=== PATIENT | male | born 1945 | race Caucasian/White ===

== ENCOUNTER 2019-12-15 07:44 | Emergency (ER) | payer MEDICARE, OTHER ==
[~2019-12-15] VITALS: Ht 175.3 cm; Wt 86.2 kg
[~2019-12-15 07:44] MED LIST: HYDR-4100 PO; SIMV20TA2 PO; TAMS-11 PO; VALS320T2 PO; VERA240C2 PO
[2019-12-15 07:54] VITALS: BP_SYST 158
--- NOTE | 2019-12-15 07:59 | NUR ---
Patient to ER bed 1 to gown for evaluation. Side rails up. Mariluz
--- NOTE | 2019-12-15 08:00 | NUR ---
Patient presented to ER with right hip pain. Patient A&Ox4, pain 09/01. denies N/V/D, skin pink and warm, cap refill <3, pedal pulses present. Patient states pain started yesterday approx. 1600 after carring heavy items up stairs. 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
--- NOTE | 2019-12-15 08:28 | NUR ---
ER Dr. Leon at bedside examining patient.
--- NOTE | 2019-12-15 08:38 | NUR ---
Patient to ER bed 1 from Radiology.
[2019-12-15 09:59] LABS: BASOPHILS % (AUTO) 0.2 % (0.0-2.0); EOSINOPHILS # (AUTO) 0.4 K/uL (0.0-0.4); EOSINOPHILS % (AUTO) 3.3 % (0.0-4.0); HEMATOCRIT 39.6 % (36-54); LYMPHOCYTES # (AUTO) 1.2 K/uL (1.0-5.5); LYMPHOCYTES % (AUTO) 10.9 % (20.5-51.5); MEAN CORPUSCULAR HEMOGLOBIN 32 pg (27-31); MEAN CORPUSCULAR HGB CONC 33 % (32-36); MEAN CORPUSCULAR VOLUME 96 fL (79.0-98.0); MONOCYTES # (AUTO) 0.8 K/uL (0.0-1.0); MONOCYTES % (AUTO) 7.7 % (1.7-9.3); NEUTROPHILS # (AUTO) 8.3 K/uL (1.8-7.7); NEUTROPHILS % (AUTO) 77.9 % (40.0-70.0); PLATELET COUNT (AUTO) 296 K/uL (130-430); RED BLOOD CELL COUNT(AUTO) 4.11 MIL/uL (4.2-6.2); RED CELL DISTRIBUTION WIDTH 14.8 % (9.0-15.0); WHITE BLOOD COUNT (AUTO) 10.7 K/uL (4.8-10.8)
[2019-12-15 10:07] LABS: ALANINE AMINOTRANSFERASE 35 U/L (12-78); ALBUMIN 4.3 g/dL (3.4-4.8); ANION GAP 10 (5-15); ASPARTATE AMINOTRANSFERASE 22 U/L (10-37); CALCIUM 8.8 mg/dL (8.4-11.0); CHLORIDE 100 mmol/L (98-107); GLUCOSE 130 mg/dL (70-99); POTASSIUM 3.9 mmol/L (3.5-5.1); SODIUM SERUM 135 mmol/L (136-145); TOTAL BILIRUBIN 0.6 mg/dL (0.0-1.0); UREA NITROGEN, BLOOD 17 mg/dL (8-21)
[2019-12-15] MEDS ORDERED: GLU500 PO (10:11)
[2019-12-15] MEDS ORDERED: VALS1TAB80 PO (10:11)
[2019-12-15] MEDS ORDERED: VALA500T PO (10:11)
--- NOTE | 2019-12-15 10:12 | NUR ---
Medication reconciliation completed with information provided by the pt. Any prior medication reconciliation on file was reviewed and corrected.
[2019-12-15 10:14] LABS: CREATININE 0.63 mg/dL (0.55-1.30)
[2019-12-15] MEDS ORDERED: fentaNYL CITRATE/PF 100 MCG/2 ML AMP IVP ONE (11:45)
--- NOTE | 2019-12-15 12:40 | NUR ---
called [facility]
--- NOTE | 2019-12-15 13:00 | NUR ---
Patient sitting up in gurney, awake and alertx4
--- NOTE | 2019-12-15 14:30 | NUR ---
Patient given lunch tray
[2019-12-15] MEDS ORDERED: ACETAMINOPHEN 500 MG TABLET PO ONE (17:15)
--- NOTE | 2019-12-15 17:30 | NUR ---
Patient moved to ER room 6
--- NOTE | 2019-12-15 18:35 | NUR ---
Patient to be transferred to [facility] . Is being transferred due to higher level of care. Receiving facility has accepting physician and available space. ER physician has signed transfer form. Patient or responsible constitution party has agreed to transfer and signed form. Patient belongings inventoried and will be sent with patient. Copy of nursing notes, lab reports, EKG, Physicians Orders and X-rays to be sent with patient. Report called to Talon WESLEY at receiving facility. Receiving physician is Dr. Keith Azevedo. [facility] ambulance service has been called for transfer. ETA is 1900.
[2019-12-15 18:50] VITALS: BP_SYST 153
== END 2019-12-15 18:35 | disposition short-term general hospital (02) ==
LOC: SED 07:44
DX: M25.551 Pain in right hip (principal); E11.9 Type 2 diabetes mellitus without complications; I10 Essential (primary) hypertension; E78.00 Pure hypercholesterolemia, unspecified; Z79.899 Other long term (current) drug therapy; Z88.2 Allergy status to sulfonamides; Z96.641 Presence of right artificial hip joint
CPT/HCPCS: 36415; 72170; 72192; 73502; 80053; 85025; 96374; 99285; J3010

== ENCOUNTER 2022-11-17 06:07 | Emergency (ER) | payer OTHER ==
[~2022-11-17] VITALS: Ht 175.3 cm; Wt 86.6 kg
[~2022-11-17 06:07] MED LIST changes: +GLU500 PO; +HYDR-3927 PO; -HYDR-4100 PO; +SIMV-343 PO; -SIMV20TA2 PO; +VALA500T PO; +VALS1TAB80 PO; -VALS320T2 PO
[2022-11-17 06:20] VITALS: BP_SYST 123
--- NOTE | 2022-11-17 06:30 | NUR ---
Patient triaged and placed in waiting room. VSS and patient appears in no acute distress at this time. Accompanied by self, awaiting available bed, and MD Salazar notified of need for MSE.
[2022-11-17] MEDS ORDERED: MORPHINE 4 MG INJ. 4 MG/ML VIAL IM ONE ×2 (06:45→09:15)
[2022-11-17 07:08] LABS: BASOPHILS % (AUTO) 0.3 % (0.0-2.0); EOSINOPHILS # (AUTO) 0.3 K/uL (0.0-0.4); EOSINOPHILS % (AUTO) 3.2 % (0.0-4.0); HEMATOCRIT 41.4 % (36-54); HEMOGLOBIN 13.9 g/dL (14.0-18.0); LYMPHOCYTES # (AUTO) 1.3 K/uL (1.0-5.5); LYMPHOCYTES % (AUTO) 14.7 % (20.5-51.5); MEAN CORPUSCULAR HEMOGLOBIN 31 pg (27-31); MEAN CORPUSCULAR HGB CONC 34 % (32-36); MEAN CORPUSCULAR VOLUME 93 fL (79.0-98.0); MONOCYTES # (AUTO) 0.7 K/uL (0.0-1.0); MONOCYTES % (AUTO) 8.2 % (1.7-9.3); NEUTROPHILS # (AUTO) 6.5 K/uL (1.8-7.7); NEUTROPHILS % (AUTO) 73.6 % (40.0-70.0); PLATELET COUNT (AUTO) 216 K/uL (130-430); RED BLOOD CELL COUNT(AUTO) 4.46 MIL/uL (4.2-6.2); RED CELL DISTRIBUTION WIDTH 14.8 % (9.0-15.0); WHITE BLOOD COUNT (AUTO) 8.9 K/uL (4.8-10.8)
[2022-11-17 07:24] LABS: ANION GAP 9 (5-15); CALCIUM 9.1 mg/dL (8.4-11.0); CHLORIDE 103 mmol/L (98-107); CREATININE 0.74 mg/dL (0.55-1.30); GLUCOSE 188 mg/dL (70-99); UREA NITROGEN, BLOOD 23 mg/dL (8-21)
[2022-11-17 07:29] LABS: ALANINE AMINOTRANSFERASE 37 U/L (12-78); ALBUMIN 3.9 g/dL (3.4-4.8); ASPARTATE AMINOTRANSFERASE 20 U/L (10-37); TOTAL BILIRUBIN 0.6 mg/dL (0.0-1.0); URIC ACID 4.8 mg/dL (2.4-7.0)
[2022-11-17 07:41] LABS: C-REACTIVE PROTEIN QUANT < 0.2 mg/dL (0-0.5)
[2022-11-17 07:58] LABS: ERYTHROCYTE SEDIMENTATION RATE 2 MM/HR (0-15)
[2022-11-17] MEDS ORDERED: MORPHINE 4 MG INJ. 4 MG/ML VIAL ONE (08:59)
[2022-11-17 09:43] VITALS: BP_SYST 145
--- NOTE | 2022-11-17 09:45 | NUR ---
Patient given written and verbal discharge instructions and verbalizes understanding. ER MD DR HOLCOMB discussed with patient the results and treatment provided. Patient in stable condition. ID arm band removed. Patient educated on pain management and to follow up with PMD. Pain Scale 6/10. Opportunity for questions provided and answered. Medication side effect fact sheet provided.
== END 2022-11-17 09:43 | disposition home or self-care (01) ==
LOC: SED 06:07
DX: M25.551 Pain in right hip (principal); E11.9 Type 2 diabetes mellitus without complications; I10 Essential (primary) hypertension; Z88.2 Allergy status to sulfonamides; Z79.899 Other long term (current) drug therapy
CPT/HCPCS: 99284; 80053; 84550; 85025; 85651; 86140; 36415; 73502; 96372; J2270